=== PATIENT | male | born 1965 | race Caucasian/White ===

== ENCOUNTER 2016-09-16 06:28 | Emergency (ER) | payer OTHER ==
[~2016-09-16] VITALS: Ht 182.9 cm; Wt 113.4 kg
[~2016-09-16 06:28] MED LIST: PERCOCET 5-3251 EACH PO; XARELTO15 M1 PO; ZOFRAN4 M2 SL
--- NOTE | 2016-09-16 07:32 | ED UPPER/LOWER EXTREMITY COMPL ---
History of Present Illness General Chief Complaint: Shoulder Injury Stated Complaint: PT C/O RT SHOULDER PAIN SINCE LAST SAT Source: patient Exam Limitations: no limitations Allergies Coded Allergies: No Known Allergies (12/25/15) Reconcile Medications Acetaminophen (Tylenol Extra Strength) 500 MG TABLET 1 TAB PO TID Shoulder Pain Ibuprofen 600 MG TABLET 1 TAB PO TID Shoulder pain with food Rivaroxaban (Xarelto) 15 MG TABLET 1 TAB PO BID DVT TAKE WITH FOOD Triage Note: PT TO ED C/O RIGHT SHOULDER PAIN. PT REPORTS TRIPPING, FALLING AND LANDING ON RIGHT SHOULDER WHILE AT WORK SATURDAY. PT REPORTS THAT THE PAIN WAS NOT INTIALLY THAT BAD BUT THE PAIN HAS GOTTEN INCREASINGLY WORSE. PT UNABLE TO MOVE ARM DUE TO PAIN. NO OBVIOUS DEFORMITY. CMS INTACT. Triage Nurses Notes Reviewed? yes HPI: 51 Yo M PMH HTN, HLD, DV/PE presenting with right shoulder pain s/p fall. Patient was walking in warehouse 2 days ago, tripped on palate on the floor, fell onto his right side striking right shoulder directly on ground. Acute onset pain, persistent since that time, sharp pains in right shoulder, radiating down arm, moderate severity, worse with movement or palpation of shoulder, no treatments tried, ROM limited by pain, denies distal neurovascular deficits. Denies head/neck trauma/pain, LOC, focal neurologic Sx. Hx of DVT/PE, has not taken xarelto in 1.5 years (though supposed to be taking), denies LE swelling/ pain, chest pain, palpitations, SOB. (MICK LUCERO,BRUCE) Vital Signs & Intake/Output Vital Signs & Intake/Output Vital Signs Date Time Temp Pulse Resp B/P Pulse O2 O2 Flow FiO2 Ox Delivery Rate 09/16 0738 99.0 09/16 0649 99.0 113 18 144/104 96 Past History Travel History Traveled to [place] past 21 day No Medical History Any Pertinent Medical History? see below for history Cardiovascular: hypertension, hyperlipidemia Respiratory: pulmonary embolism Blood Disorders: DVT Surgical History Surgical History: non-contributory Psychosocial History What is your primary language Lao Tobacco Use: Current Daily Use Daily Tobacco Use Amount/Type: => 5 Cigarettes daily Family History Hx Contributory? No (MICK LUCERO,BRUCE) Review of Systems Review of Systems Constitutional: Reports: no symptoms. EENTM: Reports: no symptoms. Respiratory: Reports: no symptoms. Cardiovascular: Reports: no symptoms. Gastrointestinal/Abdominal: Reports: no symptoms. Genitourinary: Reports: no symptoms. Musculoskeletal: Reports: no symptoms. Skin: Reports: no symptoms. Neurological/Psychological: Reports: no symptoms. Hematologic/Endocrine: Reports: no symptoms. Immunological: Reports: no symptoms. All Other Systems: Reviewed and Negative (MICK LUCERO,BRUCE) Physical Exam Physical Exam General Appearance: well developed/nourished, no apparent distress Head: atraumatic Eyes: Bilateral: normal appearance. Ears, Nose, Throat: normal ENT inspection Neck: normal inspection, supple, full range of motion, no midline tenderness Cardiovascular/Respiratory: normal peripheral pulses, tachycardia Peripheral Pulses: 2+ radial (R), 2+ radial (L) Gastrointestinal: Non-TTP throughout Back: normal inspection, normal range of motion Shoulder Left: normal range of motion Shoulder Right: tenderness, pain, limited range of motion Elbow Left: normal range of motion, normal inspection Elbow Right: normal range of motion, normal inspection Hand Left: normal inspection, normal range of motion Hand Right: normal inspection, normal range of motion Comments: Right shoulder: TTP over right shoulder and proximal humerus, ROM limited by pain, no effusion, 2+ distal radial pulse, no motor deficits, no sensory deficits (BRUCE BARTON MD) Progress Differential Diagnosis: dislocation, fracture, sprain, tendon injury (MICK LUCERO,BRUCE) Plan of Care: Orders Procedure Date/time Status Durable Medical Equipment 09/16 1338 Active Physician MDM: 51 yo M presenting with right shoulder pain x 2 days s/p fall. HR 110s on arrival, otherwise VSS, right shoulder exam as above. DDx: Fracture, dislocation, sprain, strain, soft tissue injury, tachycardia likely 2/2 pain, low concern for PE. Tylenol 650 mg with improvement in pain, HR decreased to mid -90s. Right shoulder, humerus XR without Fx or dislocation. CXR without clavicle Fx or airspace disease. Declined toradol IM shot. D/Toby with tylenol/ibuprofen for pain, given return precautions, plan to establish care with PMD, f/u with orthopedics as neccessary. D/W Dr. Noriega. (BRUCE BARTON MD) Departure Departure Disposition: HOME OR SELF CARE Condition: Stable Clinical Impression Primary Impression: Right shoulder pain Qualifiers: Chronicity: acute Qualified Code: M25.511 - Pain in right shoulder Referrals: [facility] PATIENT HAS NO PRIMARY CARE DR (PCP/Family) Additional Instructions: Take Tylenol or ibuprofen as needed for pain. Establish care with [facility]. Follow up with Dr. Aragon as needed. Return to the ED for any new, worsening, or concerning symptoms. Departure Forms: Customer Survey General Discharge Information Prescriptions: Current Visit Scripts Ibuprofen 1 TAB PO TID #30 TAB with food Acetaminophen (Tylenol Extra Strength) 1 TAB PO TID #30 TAB (MICK LUCERO,BRUCE) Resident Co-Sign Statement Statement: ED Attending supervision documentation- [x] I saw and evaluated the patient. I have also reviewed all the pertinent lab results and diagnostic results. I agree with the findings and the plan of care as documented in the Resident's documentation. [] I have reviewed the ED Record and agree with the Resident's documentation. [] Additions or exceptions (if any) to the Resident's note and plan are summarized below: [] (CLAUDE LUCERO,CHINEDU Cochran)
--- NOTE | 2016-09-16 08:39 | RADIOLOGY REPORT ---
EXAMINATION: XR SHOULDER, RIGHT XR HUMERUS, RIGHT CLINICAL INFORMATION: Pain. Reduced range of motion. Possible fracture. COMPARISON: Chest radiograph 12/25/2015. TECHNIQUE: The right shoulder is imaged in 3 views. The right humerus is imaged in 2 views. FINDINGS: The right shoulder shows no fracture or dislocation. The acromioclavicular alignment appears normal. There are no visible rotator cuff calcifications. The right humerus shows no fracture dislocation or destructive process. IMPRESSION: Unremarkable exams.
--- NOTE | 2016-09-16 08:43 | RADIOLOGY REPORT ---
EXAMINATION: XR CHEST CLINICAL INFORMATION: Fall, trauma, pain COMPARISON: Right shoulder and humerus 09/16/2016, chest radiographs 12/25/2015. TECHNIQUE: The chest is imaged in PA x2 and lateral projections for a total of 3 views. FINDINGS: The lungs are clear. There is no pneumothorax or pleural reaction or effusion. The vascularity is normal. There is no vascular congestion or airspace consolidation. The heart is normal in size. The hilar and mediastinal contours and bony structures are similar to prior study. IMPRESSION: Lungs clear. No acute intrathoracic disease.
[2016-09-16] MEDS ORDERED: TYLENOL EXTRA500 M2 PO (08:59)
[2016-09-16] MEDS ORDERED: IBUPROFEN600 M1 PO (08:59)
[2016-09-16 09:03] VITALS: BP 140/88
== END 2016-09-16 09:00 ==
LOC: ERH 06:28
DX: M25.511 Pain in right shoulder (principal)
CPT/HCPCS: 73030-RT; 73060-RT; 96372; J1885